=== PATIENT | male | born 1985 | race Caucasian/White ===

== ENCOUNTER 2018-07-16 22:31 | Emergency (ER) | payer OTHER ==
--- NOTE | 2018-07-16 22:37 | C.PDOC ---
History Of Present Illness 32 year old male presents to the ER with a complaint of sudden onset severe right sided abdominal pain that began tonight, associated with nausea. Denies fever or chills. History Per: Patient History/Exam Limitations: no limitations Onset/Duration Of Symptoms: Hrs, Sudden Onset Current Symptoms Are (Timing): Still Present Location Of Pain/Discomfort: Other (Right sided) Associated Symptoms: Nausea. denies: Fever, Chills Exacerbating Factors: None Alleviating Factors: None Recent travel outside of the [place]: No Past Medical History Reviewed: Historical Data, Nursing Documentation, Vital Signs Vital Signs: Last Vital Signs Temp 98.6 F 07/16/18 22:34 Pulse 65 07/16/18 22:34 Resp 20 07/16/18 22:34 BP 134/86 07/16/18 22:34 Pulse Ox 100 07/16/18 22:34 Surgical History: Appendectomy Family History: States: No Known Family Hx - Social History Hx Alcohol Use: No Hx Substance Use: No - Immunization History Hx Tetanus Toxoid Vaccination: No Hx Influenza Vaccination: No Hx Pneumococcal Vaccination: No Review Of Systems Constitutional: Negative for: Fever, Chills Cardiovascular: Negative for: Chest Pain, Palpitations Respiratory: Negative for: Cough, Shortness of Breath Gastrointestinal: Positive for: Nausea, Abdominal Pain. Negative for: Vomiting Neurological: Negative for: Weakness, Numbness Physical Exam - Physical Exam Appears: Non-toxic, In Acute Distress Skin: Normal Color, Warm, Dry Head: Atraumatic, Normacephalic Eye(s): bilateral: Normal Inspection Oral Mucosa: Moist Neck: Normal, Supple Chest: Symmetrical, No Tenderness Cardiovascular: Rhythm Regular Respiratory: Normal Breath Sounds, No Rales, No Rhonchi, No Wheezing Gastrointestinal/Abdominal: Soft, Tenderness (RUQ), No Guarding, No Rebound Back: No CVA Tenderness Neurological/Psych: Oriented x3, Normal Speech ED Course And Treatment - Laboratory Results Result Diagrams: 07/16/18 22:46 07/16/18 22:46 ECG: Interpreted By Me, Viewed By Me ECG Rhythm: Sinus Rhythm ECG Interpretation: Normal, No Acute Changes Interpretation Of ECG: NSR, no acyte chnages, normal tracings. Rate From EC O2 Sat by Pulse Oximetry: 100 (Room air) Pulse Ox Interpretation: Normal Progress Note: CT abd/pel, blood work, EKG, and urinalysis ordered. IV fluids, toradol, zofran, and bentyl administered. Disposition Counseled Patient/Family Regarding: Diagnosis - Disposition Referrals: Dawson Lowe Jr., MD [Staff Provider] - Disposition: HOME/ ROUTINE Disposition Time: 00:48 Condition: STABLE Prescriptions: Tamsulosin [Flomax] 0.4 mg PO DAILY #7 cap Tramadol HCl/Acetaminophen [Ultracet Tablet] 1 each PO Q4 #20 tablet Instructions: Renal Colic (DC) - POA Present On Arrival: None - Clinical Impression Clinical Impression: Renal colic on right side - Scribe Statement The provider has reviewed the documentation as recorded by the Scribe Damon Steven All medical record entries made by the Scribe were at my direction and perso hal dictated by me. I have reviewed the chart and agree that the record accurately reflects my personal performance of the history, physical exam, medical decision making, and the department course for this patient. I have also personally directed, reviewed, and agree with the discharge instructions and disposition.
[2018-07-16] MEDS ORDERED: Sodium Chloride 0.9% 1,000 ML IV ONE (22:38)
[2018-07-16 22:41] VITALS: RESP 20
[2018-07-16 22:48] LABS: BASO # 0.1 K/uL (0.0-0.2); BASO % 0.5 % (0.0-2.0); EOS # 0.3 K/uL (0.0-0.7); HEMOGLOBIN 13.1 g/dL (12.0-18.0); LYMPH # 5.4 K/uL (1.0-4.3); LYMPH % 47.4 % (20.0-40.0); MEAN CELL VOLUME 87.4 fL (80.0-94.0); MEAN CORPUSCULAR HEMOGLOBIN 29.1 pg (27.0-31.0); MEAN CORPUSCULAR HGB CONC 33.3 g/dL (33.0-37.0); MONO # 1.2 K/uL (0.0-0.8); MONO % 10.7 % (0.0-10.0); NEUT # 4.4 K/uL (1.8-7.0); NEUT % 38.4 % (50.0-75.0); RBC 4.52 Mil/uL (4.40-5.90); WHITE BLOOD COUNT 11.4 K/uL (4.8-10.8)
[2018-07-16 23:00] LABS: ALB/GLOB RATIO 1.6 (1.0-2.1); ALBUMIN 4.4 g/dL (3.5-5.0); ALT/SGPT 61 U/L (21-72); AST/SGOT 35 U/L (17-59); BLOOD UREA NITROGEN 15 mg/dL (9-20); GFR NON-AFRICAN AMERICAN > 60; LIPASE 118 U/L (23-300)
[2018-07-16 23:03] LABS: URINE BACTERIA RARE (<OCC); URINE BILIRUBIN NEGATIVE (NEGATIVE); URINE BLOOD 3+ (NEGATIVE); URINE CLARITY Clear (Clear); URINE COLOR Straw (YELLOW); URINE GLUCOSE (UA) NORMAL (Normal); URINE LEUKOCYTE ESTERASE NEG Leu/uL (Negative); URINE PROTEIN NEGATIVE (NEGATIVE); URINE UROBILINOGEN NORMAL mg/dL (0.2-1.0)
[2018-07-16] MEDS ORDERED: Iodixanol 320 MG/ML 100 ML BOTTLE IV ONE ×2 (23:23)
[2018-07-17 01:01] VITALS: BP 116/68; PULSE 67; TEMP 98.1; O2SAT 98
--- NOTE | 2018-07-17 14:12 | CT ---
Date of service: 07/16/2018 PROCEDURE: CT Abdomen and Pelvis with contrast HISTORY: Right sided abd pain COMPARISON: None. TECHNIQUE: Contrast dose: 100 mL of Visipaque 320 intravenously. Axial and reformatted coronal and sagittal CT images of the abdomen and pelvis were obtained after IV contrast administration. Radiation dose: Total exam DLP = 1032.04 mGy-cm. This CT exam was performed using one or more of the following dose reduction techniques: Automated exposure control, adjustment of the mA and/or kV according to patient size, and/or use of iterative reconstruction technique. FINDINGS: LOWER THORAX: No evidence of acute pathology. LIVER: Mildly enlarged slightly heterogeneous without evidence of discrete mass GALLBLADDER AND BILE DUCTS: No evidence of acute cholecystitis. PANCREAS: Unremarkable. No gross lesion or ductal dilatation. SPLEEN: Unremarkable. ADRENALS: Unremarkable. No mass. KIDNEYS AND URETERS: Mildly dilated right kidney collecting system up to 2-3 millimeter calculus at the mid to distal right ureter VASCULATURE: Unremarkable. No aortic aneurysm. No aortic atherosclerotic calcification or mural plaque present. BOWEL: Unremarkable. No obstruction. No gross mural thickening. APPENDIX: The appendix is not visualized. No CT evidence of acute appendicitis. PERITONEUM: Unremarkable. No free fluid. No free air. LYMPH NODES: Unremarkable. No enlarged lymph nodes. BLADDER: Unremarkable. REPRODUCTIVE: Unremarkable. BONES: No acute fracture. OTHER FINDINGS: None. IMPRESSION: 2-3 millimeter calculus at the mid to distal right ureter associated with mild dilatation of the right kidney collecting system. The appendix is not visualized. No secondary signs for acute appendicitis noted in this exam. The above findings were reported to the emergency room. The above findings were not mentioned in the preliminary report.
--- NOTE | 2018-07-17 17:29 | CARD ---
APPROVED REPORT Date of service: 07/16/2018 EKG Measurement Heart [id number] MD [id number] <Conclusion> Normal sinus rhythm with sinus arrhythmia Moderate voltage criteria for LVH, may be normal variant Borderline ECG
== END 2018-07-17 01:01 | disposition home or self-care (01) ==
LOC: C.ER 22:31
DX: N20.0 Calculus of kidney (principal)
CPT/HCPCS: 74177; 80053; 81001; 83690; 85025; 93005; 96372; 96374; 96375; 96376; 99284; J0500; J1885; J2270; J2405; J7030; Q9967

== ENCOUNTER 2018-07-19 01:44 | Emergency (ER) | payer OTHER ==
[2018-07-19 02:00] VITALS: BP 126/71; PULSE 89; RESP 20; TEMP 98.6; O2SAT 100
[2018-07-19] MEDS ORDERED: Hydrocodone/Acetaminophen 5 mg /300 mg Tab PO STA (02:09)
--- NOTE | 2018-07-19 02:14 | C.PDOC ---
History Of Present Illness 32 year old male presents to the ED c/o persistent right sided abdominal pain. Patient was seen in the ED on 07/16/18 and was diagnosed with right ureter 2-3 mm stone. Patient was given tramadol, however patient reports pain persists. Patient called urologist and has an appointment for Thursday. Patient requesting better pain management. Patient denies fever, chills, CP, SOB, nausea, vomit, diarrhea, hematuria, injury, fall, trauma, weakness, numbness Time Seen by Provider: 07/19/18 01:47 Chief Complaint (Nursing): Abdominal Pain History Per: Patient History/Exam Limitations: no limitations Onset/Duration Of Symptoms: Days Current Symptoms Are (Timing): Still Present Severity: Moderate Pain Scale Rating Of: 5 Location Of Pain/Discomfort: RUQ, RLQ Radiation Of Pain To:: Flank Quality Of Discomfort: "Pain" Associated Symptoms: denies: Nausea, Vomiting, Diarrhea, Urinary Symptoms Recent travel outside of the [place]: No Additional History Per: Patient Past Medical History Reviewed: Historical Data, Nursing Documentation, Vital Signs Vital Signs: Last Vital Signs Temp 98.6 F 07/19/18 01:57 Pulse 89 07/19/18 01:57 Resp 20 07/19/18 01:57 BP 126/71 07/19/18 01:57 Pulse Ox 100 07/19/18 01:57 - Medical History PMH: No Chronic Diseases Surgical History: Appendectomy Family History: States: Unknown Family Hx - Social History Hx Alcohol Use: No Hx Substance Use: No - Immunization History Hx Tetanus Toxoid Vaccination: No Hx Influenza Vaccination: No Hx Pneumococcal Vaccination: No Review Of Systems Constitutional: Negative for: Fever, Chills Cardiovascular: Negative for: Chest Pain, Palpitations Respiratory: Negative for: Cough, Shortness of Breath Gastrointestinal: Positive for: Abdominal Pain. Negative for: Nausea, Vomiting, Diarrhea Genitourinary: Negative for: Hematuria Musculoskeletal: Negative for: Back Pain Skin: Negative for: Rash Neurological: Negative for: Weakness, Numbness, Headache, Dizziness Physical Exam - Physical Exam Appears: Non-toxic, In Acute Distress (due to pain) Skin: Normal Color, Warm, Dry Head: Atraumatic, Normacephalic Eye(s): bilateral: Normal Inspection Oral Mucosa: Moist Neck: Normal ROM, Supple Chest: Symmetrical Cardiovascular: Rhythm Regular Respiratory: Normal Breath Sounds, No Rales, No Rhonchi, No Wheezing Gastrointestinal/Abdominal: Soft, Tenderness (right lower abdomen ), No Mass, Guarding (mild), No Rebound, No Hernia Back: No CVA Tenderness Extremity: Normal ROM, No Tenderness, No Swelling Neurological/Psych: Oriented x3, Normal Speech, Normal Cognition Gait: Steady ED Course And Treatment O2 Sat by Pulse Oximetry: 100 (ON RA) Pulse Ox Interpretation: Normal Medical Decision Making Medical Decision Making: Plan: * Toradol 15 mg IM * UA Patient was only taking Tramadol for pain management. Patient only at 5/10 pain level, patient with good family support and with appointment in 2 days. Patient able to hydrate and treat pain at home by mouth as well. Disposition Counseled Patient/Family Regarding: Diagnosis, Need For Followup, Rx Given - Disposition Disposition: HOME/ ROUTINE Disposition Time: 02:38 Condition: STABLE Additional Instructions: KEYSHA SPENCER, thank you for letting us take care of you today. Your provider was Kacie Marsh MD and you were treated for FLANK PAIN. The emergency medical care you received today was directed at your acute symptoms. If you were prescribed any medication, please fill it and take as directed. It may take several days for your symptoms to resolve. Return to the Emergency Department if your symptoms worsen, do not improve, or if you have any other problems. Please contact your doctor or call one of the physicians/clinics you have been referred to that are listed on the Patient Visit Information form that is included in your discharge packet. Bring any paperwork you were given at discharge with you along with any medications you are taking to your follow up visit. Our treatment cannot replace ongoing medical care by a primary care provider outside of the emergency department. Thank you for allowing the [facility] team to be part of your care today. Prescriptions: Ibuprofen [Motrin Tab] 800 mg PO TID PRN #30 tab PRN Reason: Pain, Moderate (4-7) Instructions: Renal Colic (DC) Forms: General Discharge Instructions, [facility] [facility] (Bulgarian) - Clinical Impression Clinical Impression: Renal colic on right side - PA / NUTRITIONIST / Resident Statement MD/DO has reviewed & agrees with the documentation as recorded. - Scribe Statement The provider has reviewed the documentation as recorded by the Scribe Dayne Hammer All medical record entries made by the Scribe were at my direction and personally dictated by me. I have reviewed the chart and agree that the record accurately reflects my personal performance of the history, physical exam, medical decision making, and the department course for this patient. I have also personally directed, reviewed, and agree with the discharge instructions and disposition.
[2018-07-19 03:08] LABS: SQUAMOUS EPITHIAL < 1 /hpf (0-5); URINE BILIRUBIN NEGATIVE (NEGATIVE); URINE BLOOD 1+ (NEGATIVE); URINE CLARITY Clear (Clear); URINE COLOR Straw (YELLOW); URINE GLUCOSE (UA) NORMAL (Normal); URINE LEUKOCYTE ESTERASE NEG Leu/uL (Negative); URINE PROTEIN NEGATIVE (NEGATIVE); URINE UROBILINOGEN NORMAL mg/dL (0.2-1.0)
== END 2018-07-19 03:19 | disposition home or self-care (01) ==
LOC: C.ER 01:44
DX: N23 Unspecified renal colic (principal)
CPT/HCPCS: 81001; 96372; 99283; J1885